=== PATIENT | male | born 1970 | race Caucasian/White ===

== ENCOUNTER 2016-07-24 23:00 | Emergency (ER) | payer MEDICARE, MEDICAID ==
[2016-07-24] MEDS ORDERED: MULTIVITAMINS1 EAC6 PO (23:27)
[2016-07-24] MEDS ORDERED: PHENOBARBITAL30 M1 PO ×2 (23:28→23:40)
[2016-07-24] MEDS ORDERED: TEGRETOL200 M1 PO ×2 (23:28→23:29)
[2016-07-24] MEDS ORDERED: KEPPRA500 M3 PO (23:29)
[2016-07-24] MEDS ORDERED: VITAMIN B COMP1 EAC1 PO (23:30)
[2016-07-24] MEDS ORDERED: ZANTAC300 M3 PO (23:30)
[2016-07-24] MEDS ORDERED: THICK-IT227 GM (23:31)
[2016-07-24] MEDS ORDERED: [UNRECOGNIZED DRUG - OTHER] OP (23:32)
[2016-07-24] MEDS ORDERED: ARTIFICIAL TEA1 EAC2 OP (23:32)
[2016-07-24] MEDS ORDERED: BACTROBAN15 G1 TP (23:33)
[2016-07-24] MEDS ORDERED: ELIDEL30 GM TP (23:33)
[2016-07-24] MEDS ORDERED: IBUPROFEN200 M2 PO (23:34)
[2016-07-24] MEDS ORDERED: IMODIUM A-D2 M4 PO (23:34)
[2016-07-24] MEDS ORDERED: GUAIFENESIN200 M3 PO (23:35)
[2016-07-24] MEDS ORDERED: BENTYL10 M1 PO (23:36)
[2016-07-24] MEDS ORDERED: SINUS D PO (23:36)
[2016-07-24] MEDS ORDERED: BENADRYL25 M3 PO (23:37)
[2016-07-24] MEDS ORDERED: [UNRECOGNIZED DRUG - OTHER] PO (23:38)
[2016-07-24] MEDS ORDERED: TESSALON PERLE100 M1 PO (23:39)
[2016-07-24] MEDS ORDERED: MYLANTA (23:39)
[2016-07-24] MEDS ORDERED: [UNRECOGNIZED DRUG - OTHER] PO (23:40)
[2016-07-24] MEDS ORDERED: ALL DAY ALLERGY10 M7 PO (23:41)
[2016-07-24] MEDS ORDERED: FLOVENT DISKUS50 MCG (23:42)
[2016-07-25] MEDS ORDERED: IBUPROFEN600 M1 PO (00:25)
== END 2016-07-25 00:58 ==
LOC: EDMED 23:00
DX: S20.219A Contusion of unspecified front wall of thorax, initial encounter (principal); G40.909 Epilepsy, unspecified, not intractable, without status epilepticus; Z79.899 Other long term (current) drug therapy; W07.XXXA Fall from chair, initial encounter; Y92.22 Religious institution as the place of occurrence of the external cause